=== PATIENT | female | born 2000 | race Caucasian/White ===

== ENCOUNTER 2021-05-15 12:56 | Inpatient (IN) ==
[2021-05-15] MEDS ORDERED: MoRPHine SULFATE 4 MG/ML 1 ML CARP\\VIAL IV STA (14:51)
[2021-05-15] MEDS ORDERED: SODIUM CHLORIDE 0.9% 1000ML 1,000 ML IV ONE (14:51)
[2021-05-15] MEDS ORDERED: ONDANSETRON INJ 2 MG/ML 2 ML VIAL IV STA (14:51)
--- NOTE | 2021-05-15 15:02 | Emergency Department Note ---
History of Present Illness General Chief complaint: Abdominal Pain Stated complaint: LOWER R SIDE ABDOMINAL PAIN, VOMITING, DIARRHEA History of Present Illness Maximum Pain Intensity: 9 This patient is a 21-year-old female who presents ambulatory to the emergency department for evaluation of right lower abdominal pain that has gotten progressively worse over the last 2 days. Patient reports numerous episodes of emesis last night. The pain has steadily increased since it started. She describes it as a constant, sharp, stabbing sensation in the right lower abdomen that is worse with any movement. She is also been experiencing diarrhea. She did not take her temperature, however she has felt chills and shakes. No urinary symptoms reported. Last period was last week. Home Medications Medication Instructions Recorded Confirmed Type ascorbic acid (vitamin C) 100 mg 100 mg PO DAILY 05/15/21 05/15/21 History tablet (Vitamin C) cetirizine 10 mg tablet (Zyrtec) 10 mg PO DAILY 05/15/21 05/15/21 History lactobacillus combination no.4 3 3,000 mmu cells PO DAILY 05/15/21 05/15/21 History billion cell capsule (Probiotic) multivitamin 1 tab PO DAILY 05/15/21 05/15/21 History Allergies Allergy/AdvReac Type Severity Reaction Status Date / Time No Known Allergies Allergy Verified 05/15/21 15:07 Past Med/Surg History Medical History No pertinent past medical history Social History Smoking Status: Never smoker Preferred Language: Cymraes Feels Safe at Home: Yes Review of Systems A total of 10 systems reviewed and were otherwise negative Physical Exam Vital Signs Vital Signs - 24 hr 05/15/21 13:05 05/15/21 15:00 05/15/21 16:14 Temperature 37.5 C Temperature Source Temporal Artery Scan Pulse Rate 109 H Pulse Rate [Left Finger] 88 72 Respiratory Rate 18 20 20 Respiratory Effort / Characteristics Respiratory Depth Respiratory Pattern Blood Pressure 132/65 Blood Pressure [Left Arm] 120/70 122/71 Blood Pressure Mean 87 Blood Pressure Mean [Left Arm] 86 88 Blood Pressure Position [Left Arm] Pulse Oximetry 97 98 98 Oxygen Delivery Method Room Air Sepsis Recent Fever Within 48 Hours No Sepsis New/Unexplained Change in Mental Status No Sepsis Action Taken by Nursing No Action Required 05/15/21 18:00 05/15/21 19:29 Temperature Temperature Source Pulse Rate Pulse Rate [Left Finger] 80 115 H Respiratory Rate 20 18 Respiratory Effort / Characteristics Non-Labored Spontaneous Respiratory Depth Normal Respiratory Pattern Regular Blood Pressure Blood Pressure [Left Arm] 115/72 119/53 L Blood Pressure Mean Blood Pressure Mean [Left Arm] 86 75 Blood Pressure Position [Left Arm] Lying Pulse Oximetry 98 95 Oxygen Delivery Method Room Air Sepsis Recent Fever Within 48 Hours Sepsis New/Unexplained Change in Mental Status Sepsis Action Taken by Nursing See below Constitutional WD/WN, vitals as above Eyes EOM intact bilaterally ENMT Oral mucosa slightly dry Neck trachea midline Respiratory normal respiratory effort, lungs clear to auscultation Cardiovascular RRR, no murmur, no edema Gastrointestinal (Abdomen) Bowel sounds present, but hypoactive. Tenderness to palpation particularly in the right lower quadrant. Abdomen is soft. Positive Rovsing sign. Positive rebound tenderness Musculoskeletal no cyanosis or clubbing, extremities motor strength 5/5 Skin no rashes, warm and dry Neurologic Alert and oriented x3. No focal motor deficits. Psychiatric Acting appropriately Course Course Patient was seen and examined Vital signs including blood pressure were reviewed medications list was verified with patient Labs were obtained, and a saline lock was established The patient was ordered morphine, Zofran and fluids And patient was ordered Mefoxin IV Imaging was performed and reviewed Upon reevaluation, the patient was still in pain. She was ordered fentanyl 50 mcg IV. The patient was again reevaluated and more comfortable. I discussed the results of the CT scan with the patient and patient's father. They voiced understanding. The case was discussed with Dr. Ann from general surgery. He personally evaluated the patient at the bedside. The patient was taken directly to the OR from the emergency department. She remained stable Consultations Consultation #1: Dr. Ann Administered Medications Discontinued Medications Fentanyl Citrate (Fentanyl Citrate 100 Mcg/2 Ml Vial) 50 mcg IV NOW STA Stop: 05/15/21 17:12 Last Admin: 05/15/21 17:40 Dose: Not Given Documented by: [id number] Sodium Chloride (Nss 1000ml) 1,000 mls @ 999 mls/hr IV .Q1H1M ONE Stop: 05/15/21 15:51 Last Infusion: 05/15/21 16:08 Dose: 0 mls/hr Documented by: [id number] Admin: 05/15/21 15:07 Dose: 999 mls/hr Documented by: [id number] Cefoxitin Sodium (Mefoxin) 2,000 mg in 60 mls @ 100 mls/hr IV NOW STA Stop: 05/15/21 17:30 Last Infusion: 05/15/21 17:40 Dose: 0 mls/hr Documented by: [id number] Admin: 05/15/21 17:04 Dose: 100 mls/hr Documented by: [id number] Morphine Sulfate (Morphine Sulfate 4 Mg/Ml 1 Ml Carp\Vial) 4 mg IV NOW STA Stop: 05/15/21 14:52 Last Admin: 05/15/21 15:08 Dose: 4 mg Documented by: [id number] Ondansetron HCl (Ondansetron Inj 2 Mg/Ml 2 Ml Vial) 4 mg IV NOW STA Stop: 05/15/21 14:52 Last Admin: 05/15/21 15:08 Dose: 4 mg Documented by: [id number] Medical Decision Making Medical Records Attestation: I reviewed the patient's medical records. Home Medications Current Medication List: was personally reviewed by me Laboratory Data Attestation: I reviewed the patient's lab results. Result diagrams: 05/15/21 15:11 05/15/21 15:11 Lab Results 05/15/21 05/15/21 05/15/21 Range/Units 15:10 15:11 15:11 WBC 20.20 H (4.8-10.8) K/uL RBC 4.63 (4.2-5.4) M/uL Hgb 14.3 (12.0-16.0) g/dL Hct 42.1 (37-47) % MCV 90.9 (80-100) fL MCH 30.9 (25-34) pg MCHC 34.0 (32-36) g/dL RDW Std Deviation 42.3 (36.4-46.3) fL RDW Coeff of Ysabel 12.9 (11.5-14.5) % Plt Count 272 (130-400) K/uL MPV 10.0 (7.4-10.4) fL Immature Gran % (Auto) 0.3 % Neut % (Auto) 86.9 % Lymph % (Auto) 6.2 % [place] % (Auto) 6.5 % Eos % (Auto) 0.0 % Baso % (Auto) 0.1 % Neut # (Auto) 17.55 H (1.4-6.5) K/uL Lymph # (Auto) 1.26 (1.2-3.4) K/uL [place] # (Auto) 1.31 H (0.11-0.59) K/uL Eos # (Auto) 0.00 (0-0.5) K/uL Baso # (Auto) 0.02 (0-0.2) K/uL Immature Gran # (Auto) 0.06 H (0.00-0.02) K/uL Sodium 135 L (136-145) mmol/L Potassium 3.5 (3.5-5.1) mmol/L Chloride 103 (98-107) mmol/L Carbon Dioxide 24 (21-32) mmol/L Anion Gap 8.0 (3-11) BUN 10 (7-18) mg/dl Creatinine 1.00 (0.6-1.2) mg/dl Est Cr Clr Drug Dosing 86.5 ml/min Est GFR ( Amer) 93.3 ml/min Est GFR (Non-Af Amer) 80.5 ml/min BUN/Creatinine Ratio 10.3 (10-20) Glucose 100 H (70-99) mg/dl Calcium 9.6 (8.5-10.1) mg/dl Total Bilirubin 1.7 H (0.2-1) mg/dl AST 24 (15-37) U/L ALT 24 (12-78) U/L Alkaline Phosphatase 93 (45-117) U/L Total Protein 7.7 (6.4-8.2) gm/dl Albumin 3.9 (3.4-5.0) gm/dl Globulin 3.8 (2.5-4.0) gm/dl Albumin/Globulin Ratio 1.0 (0.9-2) Lipase 114 (73-393) U/L HCG, Qual Negative (Negative) Urine Color Urine Appearance (Clear) Urine pH (4.5-7.5) Ur Specific [place] (1.000-1.030) Urine Protein (Negative) Urine Glucose (UA) (Negative) Urine Ketones (Negative) Urine Blood (Negative) Urine Nitrite (Negative) Urine Bilirubin (Negative) Urine Urobilinogen (Negative) Ur Leukocyte Esterase (Negative) Urine WBC (Auto) (0-5) /hpf Urine RBC (Auto) (0-4) /hpf U Hyaline Cast (Auto) (0-5) /lpf U Epithel Cells (Auto) (0-5) /lpf Urine Bacteria (Auto) (Negative) Ur Renal Epithelial Cell Urine Yeast COVID-19 Eval Order SARS-CoV-2 (PCR) (Negative) 05/15/21 05/15/21 05/15/21 Range/Units 16:36 18:23 18:23 WBC (4.8-10.8) K/uL RBC (4.2-5.4) M/uL Hgb (12.0-16.0) g/dL Hct (37-47) % MCV (80-100) fL MCH (25-34) pg MCHC (32-36) g/dL RDW Std Deviation (36.4-46.3) fL RDW Coeff of [place] (11.5-14.5) % Plt Count (130-400) K/uL MPV (7.4-10.4) fL Immature Gran % (Auto) % Neut % (Auto) % Lymph % (Auto) % [place] % (Auto) % Eos % (Auto) % Baso % (Auto) % Neut # (Auto) (1.4-6.5) K/uL Lymph # (Auto) (1.2-3.4) K/uL [place] # (Auto) (0.11-0.59) K/uL Eos # (Auto) (0-0.5) K/uL Baso # (Auto) (0-0.2) K/uL Immature Gran # (Auto) (0.00-0.02) K/uL Sodium (136-145) mmol/L Potassium (3.5-5.1) mmol/L Chloride (98-107) mmol/L Carbon Dioxide (21-32) mmol/L Anion Gap (3-11) BUN (7-18) mg/dl Creatinine (0.6-1.2) mg/dl Est Cr Clr Drug Dosing ml/min Est GFR ( Amer) ml/min Est GFR (Non-Af Amer) ml/min BUN/Creatinine Ratio (10-20) Glucose (70-99) mg/dl Calcium (8.5-10.1) mg/dl Total Bilirubin (0.2-1) mg/dl AST (15-37) U/L ALT (12-78) U/L Alkaline Phosphatase (45-117) U/L Total Protein (6.4-8.2) gm/dl Albumin (3.4-5.0) gm/dl Globulin (2.5-4.0) gm/dl Albumin/Globulin Ratio (0.9-2) Lipase (73-393) U/L HCG, Qual (Negative) Urine Color [place] Urine Appearance Cloudy A (Clear) Urine pH 6.0 (4.5-7.5) Ur Specific [place] 1.024 (1.000-1.030) Urine Protein 1+ H (Negative) Urine Glucose (UA) Negative (Negative) Urine Ketones 2+ H (Negative) Urine Blood 2+ H (Negative) Urine Nitrite Negative (Negative) Urine Bilirubin 1+ H (Negative) Urine Urobilinogen Negative (Negative) Ur Leukocyte Esterase Trace H (Negative) Urine WBC (Auto) 5-10 H (0-5) /hpf Urine RBC (Auto) 5-10 H (0-4) /hpf U Hyaline Cast (Auto) 10-30 H (0-5) /lpf U Epithel Cells (Auto) >30 H (0-5) /lpf Urine Bacteria (Auto) 1+ H (Negative) Ur Renal Epithelial Cell Not Reportable Urine Yeast Not Reportable COVID-19 Eval Order Covid19 at [facility] SARS-CoV-2 (PCR) NEGATIVE (Negative) Imaging Data Attestation: I personally reviewed and interpreted this imaging study as follow s: MDM Narrative Differential diagnosis: Acute appendicitis, abscess, ovarian cyst, UTI, ureteral stone, gastroenteritis, ectopic , PID among others were considered This patient is a 21-year-old female who presents to the emergency department complaining of right lower abdominal pain, nausea, vomiting and diarrhea. On exam, she was tachycardic and borderline febrile. Her abdomen was significantly tender. I was concerned about appendicitis. Labs reveal significant leukocytosis with a white count of 20,000. CT scan was performed consistent with perforated appendicitis. The patient was treated with antibiotics. General surgery was consulted and agreed to take the patient to the operating room for definitive treatment. She remained stable in the emergency department. Impression & Plan Acute perforated appendicitis Discharge Plan Visit Data Chief Complaint: Abdominal Pain Stated Complaint: LOWER R SIDE ABDOMINAL PAIN, VOMITING, DIARRHEA ED Provider: Justa Lopez ED Midlevel Provider: Hayde Parry Discharge Problem: Acute perforated appendicitis Patient Disposition: Admitted As Inpatient Discharge Instructions Interventions: ED Discharge Assessment Last Done: 05/15/21 20:05 Forms Stand Alone Forms: [employer] Prescriptions Prescriptions: No Action multivitamin [Multiple Vitamin] Tablet 1 tab PO DAILY RF: 0 cetirizine [Zyrtec] 10 mg Tablet 10 mg PO DAILY RF: 0 Vitamin C 100 mg Tablet 100 mg PO DAILY RF: 0 Probiotic 3 billion cell Capsule 3,000 mmu cells PO DAILY RF: 0 Referrals Referrals: [facility] [Primary Care Provider] -
[2021-05-15 15:23] LABS: Basophils # (auto) 0.02 K/uL (0-0.2); Basophils % (auto) 0.1 %; Hematocrit (blood only) 42.1 % (37-47); Hemoglobin 14.3 g/dL (12.0-16.0); Immature Granulocytes # (auto) 0.06 K/uL (0.00-0.02); Immature Granulocytes % (auto) 0.3 %; Lymphocytes # (auto) 1.26 K/uL (1.2-3.4); Lymphocytes % (auto) 6.2 %; Mean Corpuscular Hemoglobin 30.9 pg (25-34); Mean Corpuscular Volume 90.9 fL (80-100); Monocytes # (auto) 1.31 K/uL (0.11-0.59); Monocytes % (auto) 6.5 %; Neutrophils # (auto) 17.55 K/uL (1.4-6.5); Neutrophils % (auto) 86.9 %; Platelet Count 272 K/uL (130-400); RDW Coefficient of Variation 12.9 % (11.5-14.5); RDW Standard Deviation 42.3 fL (36.4-46.3); Red Blood Count 4.63 M/uL (4.2-5.4)
[2021-05-15 15:46] LABS: Albumin Level 3.9 gm/dl (3.4-5.0); BUN Creatinine Ratio 10.3 (10-20); Calcium 9.6 mg/dl (8.5-10.1); Creatinine Clr Calc Pharmacy 86.5 ml/min; Est GFR (African American) 93.3 ml/min; Est GFR (Non-African American) 80.5 ml/min; Potassium 3.5 mmol/L (3.5-5.1)
[2021-05-15 15:48] LABS: Bilirubin,Total 1.7 mg/dl (0.2-1); Globulin 3.8 gm/dl (2.5-4.0); Total Protein 7.7 gm/dl (6.4-8.2)
[2021-05-15 16:49] LABS: Appearance Urine Cloudy (Clear); Bacteria Urine Automated 1+ (Negative); Bilirubin Urine 1+ (Negative); Blood Urine 2+ (Negative); Color Urine Orange; Epithelial Cell Urine Auto >30 /lpf (0-5); Glucose Urine UA Negative (Negative); Ketones Urine 2+ (Negative); Leukocyte Esterase Urine Trace (Negative); Nitrite Urine Negative (Negative); Protein Urine 1+ (Negative); Specific Gravity Urine 1.024 (1.000-1.030); Urobilinogen Urine Negative (Negative)
[2021-05-15] MEDS ORDERED: cefOXitin 2,000 MG/60 ML BAG IV STA (16:55)
[2021-05-15 16:57] LABS: Pregnancy Test, Serum Negative (Negative)
[2021-05-15] MEDS ORDERED: fentaNYL citrate 100 MCG/2 ML VIAL IV STA (17:11)
--- NOTE | 2021-05-15 18:05 | CT Scan Report ---
ABDOMEN AND PELVIS CT WITH IV AND ORAL CONTRAST CT DOSE: 404.54 mGy.cm HISTORY: Right lower quadrant abdominal pain. TECHNIQUE: Multiaxial CT images of the abdomen and pelvis were performed following the use of intrave nous and oral contrast. A dose lowering technique was utilized adhering to the principles of ALARA. COMPARISON STUDY: None. FINDINGS: The lung bases are clear. No fractures within the visualized osseous structures. Fluid-fill ed thick-walled appendix within the right lower quadrant best seen on image 354 which measures 1 cm i n diameter. There is extensive periappendiceal fat stranding and a small focus of periappendiceal gas on image 340 consistent with perforated acute appendicitis. There is thickening of the adjacent sigm oid colon/rectum and terminal ileum. This is likely reactive to the perforated acute appendicitis. Tr gisela fluid within the deep pelvis. Lobular hypodense focus within the right adnexa best seen on image 364. This measures 4.1 cm and could represent reactive change associated with the right ovary, hydros alpinx, or possibly a periappendiceal abscess. No bladder wall thickening. The uterus and left ovary are within normal limits. Extensive inflammatory change within the deep pelvis secondary to the perfo rated acute appendicitis. No evidence for bowel obstruction. Trace perihepatic fluid is noted. No hep atic or splenic masses. The adrenal glands, pancreas, gallbladder, and kidneys are unremarkable. No r etroperitoneal lymphadenopathy. Normal caliber abdominal aorta. The main portal vein is patent. IMPRESSION: 1. Above findings consistent with perforated acute appendicitis with a small amount of extraluminal g as adjacent to the appendix. 2. There is extensive inflammatory change within the deep pelvis with adjacent thickening of the sigm oid colon/rectum and terminal ileum. This is likely reactive to the acute appendicitis. 3. There is a 4.1 cm lobular hypodense focus within the right adnexa. This likely represents reactive change associated with the right ovary or hydrosalpinx. A periappendiceal abscess could also have a similar appearance. ACT 112: Negative or not required by law. Electronically signed by: Tobias Camarena M.D. 05/15/2021 6:04 PM
[2021-05-15] MEDS ORDERED: ONDANSETRON INJ 2 MG/ML 2 ML VIAL IV PRN ×2 (19:20→22:46)
[2021-05-15] MEDS ORDERED: ATROPINE SULFATE 0.1 MG/ML 10ML SYR IV PRN (19:20)
[2021-05-15] MEDS ORDERED: ePHEDrine sulfate 50 MG/ML AMP IV PRN (19:20)
[2021-05-15] MEDS ORDERED: HYDROmorphone INJ 1 MG/ML SYRINGE IV PRN (19:20)
--- NOTE | 2021-05-15 19:20 | Anesthesiology Consultation ---
Date of Service May 15, 2021 Assessment & Plan (1) Encounter for pre-operative examination: Chart Review Chart Review: Acceptable Risk for Surgery and Patient NOT seen in Pre Admission Testing hcg neg. Consults Requested none History Surgery Operation Date: 05/15/21 20:00 Proposed Procedures p Laparoscopic Appendectomy(Not Applicable) - Romero Ann DO Height/Weight Height: 5 ft 7 in Weight: 73.5 kg Allergies Allergy/AdvReac Type Severity Reaction Status Date / Time No Known Allergies Allergy Verified 05/15/21 15:07 Medications Home Medications Medication Instructions Recorded Confirmed Last Taken ascorbic acid (vitamin C) 100 mg 100 mg PO DAILY 05/15/21 05/15/21 Unknown tablet (Vitamin C) cetirizine 10 mg tablet (Zyrtec) 10 mg PO DAILY 05/15/21 05/15/21 Unknown lactobacillus combination no.4 3 3,000 mmu cells PO DAILY 05/15/21 05/15/21 Unknown billion cell capsule (Probiotic) multivitamin 1 tab PO DAILY 05/15/21 05/15/21 Unknown NPO Date Last Intake of Fluids: 05/15/21 Time Last Intake of Fluids: 16:30 Last Intake of Fluids Comment: oral CT contrast in ED Date Last Intake of Solids: 05/15/21 Time Last Intake of Solids: 11:00 Last Intake of Solids Comment: saltines Past Medical History Medical History No pertinent past medical history Exercise / Class Metabolic Activity II 4-5 Yardwork/Stairs/Walk up hill Past Anesthesia History No Hx of Anesthesia Complications and No Family Hx of Anesthesia Complications History of PONV No Hx of PONV and No Hx of Motion Sickness Social History Smoking Status: Never smoker Physical Exam Vital Signs Last Vital Signs Temp 37.5 C 05/15/21 13:05 Pulse 115 H 05/15/21 19:29 Resp 18 05/15/21 19:29 BP 119/53 L 05/15/21 19:29 Pulse Ox 95 05/15/21 19:29 Testing Laboratory Results 05/15/21 15:11 05/15/21 15:11 Urine Color [place] 05/15/21 16:36 Urine Appearance Cloudy (Clear) A 05/15/21 16:36 Urine pH 6.0 (4.5-7.5) 05/15/21 16:36 Ur Specific [place] 1.024 (1.000-1.030) 05/15/21 16:36 Urine Protein 1+ (Negative) H 05/15/21 16:36 Urine Glucose (UA) Negative (Negative) 05/15/21 16:36 Urine Ketones 2+ (Negative) H 05/15/21 16:36 Urine Nitrite Negative (Negative) 05/15/21 16:36 Ur Leukocyte Esterase Trace (Negative) H 05/15/21 16:36 Urine WBC (Auto) 5-10 /hpf (0-5) H 05/15/21 16:36 Urine RBC (Auto) 5-10 /hpf (0-4) H 05/15/21 16:36 U Hyaline Cast (Auto) 10-30 /lpf (0-5) H 05/15/21 16:36 U Epithel Cells (Auto) >30 /lpf (0-5) H 05/15/21 16:36 Urine Bacteria (Auto) 1+ (Negative) H 05/15/21 16:36
[2021-05-15] MEDS ORDERED: EPINEPHrine INJ 1 MG/ML AMP ONE (19:29)
[2021-05-15] MEDS ORDERED: BUPIVACAINE 0.5 % 5 MG/1 ML MPF 30ML VIAL ONE (19:29)
[2021-05-15] MEDS ORDERED: PROPOFOL IV EMULSION 10 MG/ML 20 ML VIAL IV ONE (19:31)
[2021-05-15] MEDS ORDERED: NEOSTIGMINE METHYLSULFATE 1 MG/ML 10ML VIAL ONE (19:36)
[2021-05-15] MEDS ORDERED: GLYCOPYRROLATE 0.2 MG/ML VIAL ONE (19:36)
[2021-05-15] MEDS ORDERED: DEXAMETHASONE SOD INJ 4 MG/ML VIAL ONE (19:36)
[2021-05-15] MEDS ORDERED: ROCURONIUM BROMIDE 10 MG/ML 5 ML VIAL IV ONE (19:36)
[2021-05-15] MEDS ORDERED: ONDANSETRON INJ 2 MG/ML 2 ML VIAL ONE (19:36)
[2021-05-15] MEDS ORDERED: SUCCINYLCHOLINE CHLORIDE 20 MG/ML 10 ML VIAL IV ONE (19:36)
[2021-05-15] MEDS ORDERED: fentaNYL citrate 100 MCG/2 ML VIAL ONE (19:37)
[2021-05-15] MEDS ORDERED: MIDAZOLAM HCL 1 MG/ML 2ML VIAL ONE ×2 (19:38)
--- NOTE | 2021-05-15 20:07 | History & Physical Report ---
Date of Service May 15, 2021 Assessment & Plan (1) Acute perforated appendicitis: Plan: Discussed her diagnosis with her and her father at bedside. Recommending urgent laparoscopic appendectomy. We discussed options and risks which include bleeding, infection, injury to another organ, DVT, PE, WI, CVA etc. We discussed her need for inpatient hospitalization following the surgery. I answered all their questions. They have agreed and consented. We will proceed urgently with laparoscopic appendectomy. History of Present Illness Primary Care Provider: [facility] 21-year-old female with a 3-day history of abdominal pain. Its been progressively worsening. Today she presented to the emergency room where she was found to have leukocytosis and CT scan confirmed acute appendicitis with suspected perforation. Allergies Allergy/AdvReac Type Severity Reaction Status Date / Time No Known Allergies Allergy Verified 05/15/21 15:07 Home Medications Medication Instructions Recorded Confirmed Type ascorbic acid (vitamin C) 100 mg 100 mg PO DAILY 05/15/21 05/15/21 History tablet (Vitamin C) cetirizine 10 mg tablet (Zyrtec) 10 mg PO DAILY 05/15/21 05/15/21 History lactobacillus combination no.4 3 3,000 mmu cells PO DAILY 05/15/21 05/15/21 History billion cell capsule (Probiotic) multivitamin 1 tab PO DAILY 05/15/21 05/15/21 History Past Med/Surg History Medical History No pertinent past medical history Social History Smoking Status: Never smoker Preferred Language: Kazakh Feels Safe at Home: Yes Review of Systems All systems reviewed & are unremarkable except as noted in HPI & below Physical Exam Constitutional: WD/WN, vitals as above no acute distress and not ill appearing Eyes: PERRL, conjunctivae normal, anicteric sclerae EOM intact bilaterally ENMT: external ear and nose normal, oropharynx normal Ears: no hearing impairment Neck: trachea midline, no thyromegaly Respiratory: normal respiratory effort; no respiratory distress and does not use accessory muscles Cardiovascular: Rate/Rhythm: regular rate and regular rhythm Gastrointestinal (Abdomen): Soft. Positive right lower quadrant tenderness. Positive heel strike. Positive Rovsing sign. Skin: no rashes, warm and dry Psychiatric: Orientation: alert, oriented x 3 and cooperative Results & Data ([facility]) Vital Signs (Past 12 Hours) Vital Signs Temp Pulse Pulse Resp BP BP Pulse Ox 05/15/21 19:29 115 H 18 119/53 L 95 05/15/21 18:00 80 20 115/72 98 05/15/21 16:14 72 20 122/71 98 05/15/21 15:00 88 20 120/70 98 05/15/21 13:05 37.5 C 109 H 18 132/65 97
[2021-05-15] MEDS ORDERED: KETOROLAC 30 MG/ML VIAL ONE (21:02)
--- NOTE | 2021-05-15 21:29 | Operative Report ---
PG Post Operative Report Pre & Post Diagnosis Operation Date: 05/15/21 20:00 Pre-Op Diagnosis: Acute perforated appendicitis Post-Op Diagnosis: Acute perforated appendicitis I identified the patient and participated in the time-out.: Yes Procedure Operation Date: 05/15/21 20:00 Actual Procedures p Laparoscopic Appendectomy(Not Applicable); abdominal washout - Romero nAn DO Surgeon Romero Ann DO Inventory Control Coordinator teddy Dey Estimated Blood Loss 15 Findings Consistent with Post-Op Diagnosis Specimens appendix Description of Procedure After informed consent was obtained the patient was taken to the operating room and placed in supine position. After successful intubation a Vanegas catheter was placed. The abdomen was sterilely prepped and draped in usual fashion. An infraumbilical incision was made with an 11 blade scalpel and carried down through the soft tissue using cautery. The anterior rectus fascia was opened using cautery and two #0 Vicryl stay sutures were placed. Peritoneum was elevated with hemostats and incised under direct vision using a Metzenbaum scissor. A finger sweep was performed. A 12 mm [place] trocar was inserted and the abdomen was insufflated to 18 mmHg. Laparoscope was inserted and the abdomen examined in 360 degrees. There was purulent fluid throughout the pelvis and right lower quadrant. Small bowel, large bowel ,fallopian tubes were all inflamed. A suprapubic 5 mm port and a left lower quadrant 12 mm port were placed under direct vision. The patient was placed in a reverse Trendelenburg position and slightly air planed to the left. I began by examining the right lower quadrant. We readily encountered the base of the appendix. We followed this into the pelvis. Near the tip of the appendix there was a hole and purulent fluid coming out of it. I was able to mobilize this and bluntly dissect it free from surrounding structures. A [place] dissector was used to create a window in the mesentery of the appendix. A CAL brown cartridge 60 mm stapler was used to transect the appendix at its base. A second firing of a 60 mm brown cartridge was used to take down the mesentery of the appendix. It was placed into an Endo Catch bag and removed from the camera port site. Next we set about to washing out the entire abdomen which was primarily in the right side and pelvis. We did run the small bowel for several feet backwards from the ileocecal valve. Much of it was indurated and inflamed. We broke up all loculations we then thoroughly irrigated until all irrigant was clear. We irrigated the right paracolic gutter as well as the right upper quadrant. The left side was relatively pristine. No other abnormalities were identified. There was adequate hemostasis. A 10 flat Arnold-Constantino drain was placed into the pelvis and brought out through the left lower quadrant incision. It was secured to the skin using 0 Vicryl. The other wounds were irrigated. The fascia of the camera port was closed using 0 Vicryl in [id number] fashion. The skin was closed using 4-0 Monocryl. Marcaine with epinephrine was injected around the incisions for postoperative analgesia and skin glue used as a dressing. The patient was awakened extubated and transferred to recovery in stable condition. My physician ward assistant was present through the entire case. He helped prep the patient. He helped run the camera and exposure throughout my dissection. He also helped with wound closure and dressing placement. I attest to the content of the Intraoperative Record and any orders documented therein. Any exceptions are noted below.
[2021-05-15] MEDS: fentaNYL citrate 100 MCG/2 ML VIAL IV PRN ×4 (21:30→21:45)
[2021-05-15] MEDS ORDERED: PIPERACILLIN/TAZOBACTAM 3.375 GM in DEXTROSE 5% 100 ML IV ONE (21:30)
[2021-05-15] MEDS ORDERED: PIPERACILL/TAZOBAC CONSULT ACTIVE PRN ×2 (21:36→22:46)
--- NOTE | 2021-05-15 21:39 | Anesthesiology Progress Note ---
Date of Service May 15, 2021 Anesthesia Post Procedure Vital Signs Vital Signs: Temp Pulse Pulse Resp BP BP Pulse Ox 05/15/21 19:29 115 H 18 119/53 L 95 05/15/21 18:00 80 20 115/72 98 05/15/21 16:14 72 20 122/71 98 05/15/21 15:00 88 20 120/70 98 05/15/21 13:05 37.5 C 109 H 18 132/65 97 Pain Intensity Right Abdomen: Pain Intensity: 3 Transfer of Care Handoff Completed per policy Notes Mental Status: alert / awake / arousable and participated in evaluation Patient Amnestic to Procedure: Yes Nausea / Vomiting: adequately controlled Pain: adequately controlled Airway Patency, RR, SpO2: stable & adequate BP & HR: stable & adequate Hydration State: stable & adequate Anesthetic Complications: no major complications apparent and Pt Satisfied with anesthetic care
[2021-05-15] MEDS: LACTATED RINGER'S 1,000 ML IV SCH (22:53)
[2021-05-15] MEDS: ACETAMINOPHEN 1,000 MG/100 ML VIAL IV SCH (23:39)
[2021-05-16] MEDS: KETOROLAC TROMETHAMINE 15 MG/ML VIAL IV PRN ×3 (01:22→13:28)
[2021-05-16] MEDS: PIPERACILLIN/TAZOBACTAM 3.375 GM in DEXTROSE 5% 100 ML IV SCH ×3 (03:38→19:41)
[2021-05-16] MEDS: ACETAMINOPHEN 1,000 MG/100 ML VIAL IV SCH ×3 (05:36→21:54)
--- NOTE | 2021-05-16 06:05 | Surgery Progress Note ---
Date of Service May 16, 2021 Assessment & Plan (1) Acute perforated appendicitis: Plan: Postoperative day #1 laparoscopic appendectomy. We will proceed as follows: We will continue the patient on clear liquids only until we are certain she will tolerate this. Consideration will be given to advancing her diet further if clear liquids are tolerated Continue analgesics Continue antiemetics Her appendix was perforated we will maintain her on intravenous antibiotics in the form of Zosyn A.m. labs are pending as above. looks /feels better than yesterday. not ready for d/c. continue antibiotics. keep drain. will recheck wbc. Admission and Anticipated Discharge Date Admission Date: May 15, 2021 Subjective Patient is resting comfortably in bed. She does note abdominal pain similar to what she noted at time of admission but may be slightly improved. She denies any nausea or vomiting. She is not had a bowel movement since surgery. She denies any fevers, shakes, chills. Concerning oral intake she is only consumed some water since her surgery. Physical Exam Gastrointestinal (Abdomen): Abdomen is soft and nondistended. Bowel sounds are hypoactive. Her incisions are clean, dry, and intact. She does have a JOSE drain in place which is drained approximately 245 cc of serous fluid since her surgical date. Results & Data ([facility]) Vital Signs (Past 12 Hours) Vital Signs Temp Pulse Pulse Pulse Resp BP BP 05/16/21 03:40 36.5 C 54 L 14 104/65 05/16/21 01:15 36.8 C 60 14 104/64 05/16/21 00:19 99/63 L 05/16/21 00:15 37.2 C 79 14 87/51 L 05/15/21 23:15 36.9 C 84 14 99/60 L 05/15/21 22:45 36.7 C 73 16 95/58 L 05/15/21 22:15 37.1 C 80 16 100/61 05/15/21 22:00 37.5 C 69 16 112/54 L 05/15/21 21:55 69 16 105/51 L 05/15/21 21:45 67 16 109/50 L 05/15/21 21:35 69 16 122/51 L 05/15/21 21:25 37.7 C H 92 H 16 118/53 L 05/15/21 19:29 115 H 18 119/53 L Pulse Ox 08/28/21 03:40 99 05/16/21 01:15 99 05/16/21 00:19 05/16/21 00:15 97 05/15/21 23:15 96 05/15/21 22:45 97 05/15/21 22:15 97 05/15/21 22:00 96 05/15/21 21:55 96 05/15/21 21:45 100 05/15/21 21:35 100 05/15/21 21:25 100 05/15/21 19:29 95 PG Care Time/CCT Total # of Minutes Spent Total Time Spent with Patient: Total time spent is greater than 50% in coordination of care (as documented) at patient's floor/unit and/or counseling patient: Coding Level of Care Code None Diagnoses Acute perforated appendicitis K35.32
[2021-05-16 06:14] LABS: Hematocrit (blood only) 37.7 % (37-47); Hemoglobin 12.7 g/dL (12.0-16.0); Mean Corpuscular Hemoglobin 30.9 pg (25-34); Mean Corpuscular Volume 91.7 fL (80-100); Mean Platelet Volume 9.6 fL (7.4-10.4); Platelet Count 202 K/uL (130-400); RDW Coefficient of Variation 12.9 % (11.5-14.5); RDW Standard Deviation 43.3 fL (36.4-46.3); Red Blood Count 4.11 M/uL (4.2-5.4); White Blood Count 22.39 K/uL (4.8-10.8)
[2021-05-16 06:37] LABS: Basophils # (auto) 0.02 K/uL (0-0.2); Basophils % (auto) 0.1 %; Immature Granulocytes % (auto) 0.4 %; Lymphocytes # (auto) 0.86 K/uL (1.2-3.4); Lymphocytes % (auto) 3.8 %; Mean Corpuscular Hgb Conc 33.7 g/dL (32-36); Monocytes # (auto) 0.94 K/uL (0.11-0.59); Monocytes % (auto) 4.2 %; Neutrophils # (auto) 20.47 K/uL (1.4-6.5); Neutrophils % (auto) 91.5 %; RBC Morphology Unremarkable
[2021-05-16 06:42] LABS: BUN Creatinine Ratio 9.2 (10-20); Calcium 8.5 mg/dl (8.5-10.1); Creatinine Clr Calc Pharmacy 85.7 ml/min; Est GFR (African American) 92.2 ml/min; Est GFR (Non-African American) 79.5 ml/min; Potassium 4.1 mmol/L (3.5-5.1)
[2021-05-16] MEDS: MoRPHine SULFATE 4 MG/ML 1 ML CARP\\VIAL IV PRN ×2 (09:14→19:53)
[2021-05-16] MEDS: LACTATED RINGER'S 1,000 ML IV SCH ×2 (09:19→17:29)
[2021-05-17] MEDS: LACTATED RINGER'S 1,000 ML IV SCH ×2 (00:34→08:26)
[2021-05-17] MEDS: PIPERACILLIN/TAZOBACTAM 3.375 GM in DEXTROSE 5% 100 ML IV SCH ×2 (03:30→12:32)
[2021-05-17] MEDS: ACETAMINOPHEN 1,000 MG/100 ML VIAL IV SCH (05:23)
--- NOTE | 2021-05-17 06:14 | Surgery Progress Note ---
Date of Service May 17, 2021 Assessment & Plan (1) Acute perforated appendicitis: Plan: Postoperative day #2 laparoscopic appendectomy. We will proceed as follows: Advance diet to full liquids. Will consider advancing further if full liquids are tolerated Continue antiemetics Continue analgesics Maintain the patient on intravenous antibiotics in the form of Zosyn as her appendix was perforated Repeat CBC this a.m. patient has a noted leukocytosis on labs yesterday Increase mobilization as able Add Lovenox for DVT prevention as above. feeling ok. no major complaints other than sore. wbc down to 9000. ok for d/c. instructions given. Admission and Anticipated Discharge Date Admission Date: May 15, 2021 Subjective Patient is resting comfortably in bed. She denies some minor abdominal pain near her surgical incisions. She denies any nausea vomiting. She denies any fevers, shakes, chills. She has tolerated clear liquid diet. She denies any bowel movement or flatus since her surgery. Physical Exam Gastrointestinal (Abdomen): Abdomen is soft and nondistended. Her incisions are clean dry and intact. She does have pain with palpation near her surgical incisions. JOSE drain is in place draining serous fluid it is drained 140 cc over last 24 hours and 60 cc over the last shift. Results & Data ([facility]) Vital Signs (Past 12 Hours) Vital Signs Temp Pulse Resp BP Pulse Ox 05/16/21 23:04 36.7 C 58 L 14 101/63 98 PG Care Time/CCT Total # of Minutes Spent Total Time Spent with Patient: Total time spent is greater than 50% in coordination of care (as documented) at patient's floor/unit and/or counseling patient: Coding Level of Care Code None Diagnoses Acute perforated appendicitis K35.32
[2021-05-17 08:04] VITALS: BP 107/70; PULSE 65; TEMP 98.4; O2SAT 97
[2021-05-17 08:10] LABS: Basophils # (auto) 0.01 K/uL (0-0.2); Basophils % (auto) 0.1 %; Eosinophils # (auto) 0.17 K/uL (0-0.5); Eosinophils % (auto) 1.7 %; Hematocrit (blood only) 34.1 % (37-47); Hemoglobin 11.1 g/dL (12.0-16.0); Immature Granulocytes # (auto) 0.01 K/uL (0.00-0.02); Immature Granulocytes % (auto) 0.1 %; Lymphocytes # (auto) 1.09 K/uL (1.2-3.4); Lymphocytes % (auto) 11.1 %; Mean Corpuscular Hemoglobin 30.9 pg (25-34); Mean Corpuscular Hgb Conc 32.6 g/dL (32-36); Mean Platelet Volume 10.6 fL (7.4-10.4); Monocytes # (auto) 0.71 K/uL (0.11-0.59); Monocytes % (auto) 7.2 %; Neutrophils # (auto) 7.84 K/uL (1.4-6.5); Neutrophils % (auto) 79.8 %; Platelet Count 209 K/uL (130-400); RDW Coefficient of Variation 12.9 % (11.5-14.5); RDW Standard Deviation 45.5 fL (36.4-46.3); Red Blood Count 3.59 M/uL (4.2-5.4); White Blood Count 9.83 K/uL (4.8-10.8)
[2021-05-17] MEDS ORDERED: ENOXAPARIN INJ 40 MG/0.4 ML SYR SQ SCH (09:00)
--- NOTE | 2021-05-28 10:43 | Discharge Summary ---
Date of Service May 28, 2021 Admission HPI Per Admitting Provider 21-year-old female with a 3-day history of abdominal pain. Its been progressively worsening. Today she presented to the emergency room where she was found to have leukocytosis and CT scan confirmed acute appendicitis with suspected perforation. Discharge Data Consultations 05/15/21 20:04 ED Decision to Admit Stat Procedures Performed Operation Date: 05/15/21 20:00 Actual Procedures p Laparoscopic Appendectomy(Not Applicable) - Romero Ann, Hospital Course (1) History of laparoscopic appendectomy: Pt. admitted with acute perforated appendicitis. She was taken to te OR on day of admission and had a laparoscopic appendectomy performed. She was in hospital for IV antibiotics x 2 days and d/c home with oral antibioitics on POD#2. She was given appropriate wound care, diet and activity instructions. She is to follow-up with Dr. Ann in 1-2 weeks.
== END 2021-05-17 13:48 | disposition home or self-care (01) | DRG 340 ==
LOC: ED 12:56 → 3N 20:05 → ASU 20:05 → 3N 21:24
DX: K35.32 Acute appendicitis with perforation, localized peritonitis, and gangrene, without abscess